=== PATIENT | male | born 1960 | race Caucasian/White ===

== ENCOUNTER 2019-03-16 12:44 | Inpatient (IN) | payer MEDICAID ==
[~2019-03-16] VITALS: Ht 172.5 cm; Wt 72.1 kg
[2019-03-16] MEDS ORDERED: SODIUM CHLORIDE 0.9% 1,000 ML IV ONE (13:22)
[2019-03-16] MEDS ORDERED: ONDANSETRON HCL 4MG/2ML INJ IV STA (13:22)
[2019-03-16 14:10] LABS: BASOPHILS % 0.4 % (0.0-2.0); EOSINOPHILS % 0.4 % (0.0-5.0); HEMATOCRIT. 33.1 % (42.0-52.0); HEMOGLOBIN. 11.3 g/dL (14.0-18.0); LYMPHOCYTES % 19.9 % (20.0-50.0); MEAN CORPUSCULAR HEMOGLOBIN 30.9 pg (28.0-32.0); MEAN CORPUSCULAR VOLUME 90.6 fL (80.0-94.0); MEAN PLATELET VOLUME 8.5 fl (7.4-10.4); MONOCYTES % 8.2 % (2.0-8.0); NEUTROPHILS % 71.1 % (40.0-76.0); PLATELET 116 x1000/uL (130-400); RED BLOOD CELL COUNT 3.66 mill/uL (4.7-6.1); RED CELL DISTRIBUTION WIDTH 14.5 % (11.6-14.6)
[2019-03-16 14:18] LABS: CHLORIDE 109 mEq/L (98-107)
[2019-03-16 14:21] LABS: ETHANOL BLOOD < 10 mg/dL
[2019-03-16] MEDS ORDERED: ASPIRIN 81MG TABLET PO ONE (17:30)
[2019-03-16 22:30] VITALS: BP 112/58
[2019-03-17] VITALS (10 sets, daily range): BP systolic 98–129; BP diastolic 54–90
[2019-03-17] MEDS ORDERED: IBUP-1653 PO (01:15)
[2019-03-17] MEDS ORDERED: ONDANSETRON HCL 4MG/2ML INJ IV PRN (01:45)
[2019-03-17] MEDS ORDERED: HYDROCODONE/ACETAMINOPHEN 5/325MG TABLET PO PRN (01:45)
[2019-03-17] MEDS ORDERED: SODIUM CHLORIDE 0.9% 1,000 ML IV SCH (02:00)
[2019-03-17] MEDS: SODIUM CHLORIDE 0.9% 1,000 ML IV SCH ×3 (03:42→22:52)
[2019-03-17] MEDS ORDERED: PANTOPRAZOLE 40MG DR TABLET PO SCH (07:20)
[2019-03-17 07:45] LABS: CHLORIDE 115 mEq/L (98-107)
[2019-03-17] MEDS ORDERED: IPRATROPIUM/ALBUTEROL 0.5-3(2.5)MG/3ML NEB HHN PRN (07:45)
[2019-03-17 08:51] LABS: BASOPHILS % 0.7 % (0.0-2.0); EOSINOPHILS % 6.1 % (0.0-5.0); MEAN CORPUSCULAR HEMOGLOBIN 31.4 pg (28.0-32.0); MEAN CORPUSCULAR VOLUME 91.8 fL (80.0-94.0); MEAN PLATELET VOLUME 8.4 fl (7.4-10.4); NEUTROPHILS % 50.2 % (40.0-76.0); PLATELET 113 x1000/uL (130-400); RED BLOOD CELL COUNT 2.24 mill/uL (4.7-6.1); RED CELL DISTRIBUTION WIDTH 14.3 % (11.6-14.6)
[2019-03-17 09:05] LABS: HEMATOCRIT. 20.5 % (42.0-52.0)
[2019-03-17] MEDS ORDERED: LEVOFLOXACIN 750MG PREMIX 150 ML IV SCH (10:00)
[2019-03-17] MEDS ORDERED: INFLUENZA VIRUS VACCINE(AFLURIA) 0.5ML SYR IM ONE (10:00)
[2019-03-17] MEDS ORDERED: IOHEXOL-350 100 ML BOTTLE ONE (10:50)
[2019-03-17 11:50] LABS: LDL CHOLESTEROL 49 mg/dL (5-100)
[2019-03-17 11:52] LABS: HDL CHOLESTEROL 30 mg/dL (40-59)
[2019-03-17] MEDS ORDERED: BENZONATATE 100MG CAPSULE PO PRN (14:30)
[2019-03-17] MEDS: ACETYLCYSTEINE 100MG/ML 10% VIAL 4ML INH SCH (15:00)
[2019-03-17] MEDS: AZITHROMYCIN 500 MG in DEXT 5% WATER 250 ML IV SCH (16:42)
[2019-03-17] MEDS: IPRATROPIUM/ALBUTEROL 0.5-3(2.5)MG/3ML NEB HHN SCH ×2 (16:45→20:11)
[2019-03-17 18:25] LABS: INR 1.4; PROTHROMBIN TIME 14.1 sec (9.6-11.0)
[2019-03-17] MEDS: CEFTRIAXONE 1 G PREMIX 50 ML IV SCH (18:30)
[2019-03-17 18:50] LABS: HEPATITIS B SURFACE ANTIGEN NEGATIVE
[2019-03-17 19:20] LABS: HEPATITIS A AB IGM NEGATIVE (NEGATIVE)
[2019-03-17] MEDS: PANTOPRAZOLE SODIUM 40 MG/VIAL IV SCH (21:06)
[2019-03-18] VITALS (10 sets, daily range): BP systolic 104–129; BP diastolic 57–65
[2019-03-18 00:32] LABS: HEMOGLOBIN 7.2 g/dL (14.0-18.0)
[2019-03-18] MEDS: ACETYLCYSTEINE 100MG/ML 10% VIAL 4ML INH SCH ×3 (00:34→16:28)
[2019-03-18] MEDS: IPRATROPIUM/ALBUTEROL 0.5-3(2.5)MG/3ML NEB HHN SCH ×6 (00:35→20:24)
[2019-03-18 02:03] LABS: HEMATOCRIT 21.3 % (42.0-52.0); HEMOGLOBIN 7.3 g/dL (14.0-18.0)
[2019-03-18] MEDS: PANTOPRAZOLE SODIUM 40 MG/VIAL IV SCH ×2 (08:24→20:57)
[2019-03-18 09:53] LABS: BASOPHILS % 1.1 % (0.0-2.0); EOSINOPHILS % 8.3 % (0.0-5.0); HEMATOCRIT. 22.8 % (42.0-52.0); LYMPHOCYTES % 32.2 % (20.0-50.0); MEAN CORPUSCULAR HEMOGLOBIN 31.3 pg (28.0-32.0); MEAN CORPUSCULAR VOLUME 89.4 fL (80.0-94.0); MONOCYTES % 10.9 % (2.0-8.0); NEUTROPHILS % 47.5 % (40.0-76.0); PLATELET 74 x1000/uL (130-400); RED BLOOD CELL COUNT 2.55 mill/uL (4.7-6.1); RED CELL DISTRIBUTION WIDTH 14.3 % (11.6-14.6)
[2019-03-18 09:57] LABS: CHLORIDE 114 mEq/L (98-107)
[2019-03-18] MEDS ORDERED: MIDAZOLAM HCL 5 MG/5 ML VIAL ONE (11:32)
[2019-03-18] MEDS ORDERED: SIMETHICONE 40 MG/0.6 ML 30ML ONE (11:33)
[2019-03-18] MEDS ORDERED: FENTANYL CITRATE/PF 50MCG/ML 2ML VIAL ONE (11:33)
[2019-03-18] MEDS ORDERED: MIDAZOLAM HCL 2 MG/2 ML VIAL IV PRN (11:41)
[2019-03-18] MEDS ORDERED: FENTANYL CITRATE/PF 50MCG/ML 2ML VIAL IV PRN (11:42)
[2019-03-18 15:29] LABS: HEMATOCRIT 23.1 % (42.0-52.0); HEMOGLOBIN 7.9 g/dL (14.0-18.0)
[2019-03-18] MEDS: SODIUM CHLORIDE 0.9% 1,000 ML IV SCH ×2 (16:20→21:42)
[2019-03-18] MEDS: AZITHROMYCIN 500 MG in DEXT 5% WATER 250 ML IV SCH (16:21)
[2019-03-18] MEDS: CEFTRIAXONE 1 G PREMIX 50 ML IV SCH (17:59)
[2019-03-19] VITALS: BP 112/60
[2019-03-19] MEDS: IPRATROPIUM/ALBUTEROL 0.5-3(2.5)MG/3ML NEB HHN SCH ×5 (01:16→16:00)
[2019-03-19] MEDS: ACETYLCYSTEINE 100MG/ML 10% VIAL 4ML INH SCH ×3 (01:17→16:20)
[2019-03-19 04:00] VITALS: BP 111/64
[2019-03-19] MEDS: SODIUM CHLORIDE 0.9% 1,000 ML IV SCH ×2 (04:21→13:37)
[2019-03-19 07:23] LABS: BASOPHILS % 0.7 % (0.0-2.0); EOSINOPHILS % 13.2 % (0.0-5.0); HEMATOCRIT. 22.3 % (42.0-52.0); HEMOGLOBIN. 7.7 g/dL (14.0-18.0); LYMPHOCYTES % 26.3 % (20.0-50.0); MEAN CORPUSCULAR HEMOGLOBIN 31.6 pg (28.0-32.0); MEAN CORPUSCULAR VOLUME 91.1 fL (80.0-94.0); MEAN PLATELET VOLUME 8.4 fl (7.4-10.4); MONOCYTES % 10.6 % (2.0-8.0); NEUTROPHILS % 49.2 % (40.0-76.0); PLATELET 72 x1000/uL (130-400); RED BLOOD CELL COUNT 2.45 mill/uL (4.7-6.1); RED CELL DISTRIBUTION WIDTH 14.4 % (11.6-14.6)
[2019-03-19 08:16] VITALS: BP 99/56
[2019-03-19] MEDS ORDERED: LEVO750T21 MT (09:05)
[2019-03-19] MEDS ORDERED: PROP10TA10 MT (09:05)
[2019-03-19] MEDS: PANTOPRAZOLE SODIUM 40 MG/VIAL IV SCH (09:15)
[2019-03-19 12:21] VITALS: BP 106/62
[2019-03-19] MEDS: AZITHROMYCIN 500 MG in DEXT 5% WATER 250 ML IV SCH (16:27)
[2019-03-19 16:31] VITALS: BP 112/66
[2019-03-19 17:19] VITALS: BP 112/66
[2019-03-20 08:07] LABS: HIV SCREEN 4G Non Reactive (Non Reactive)
== END 2019-03-19 18:42 | disposition home or self-care (01) | DRG 950 ==
LOC: ER 13:05 → ENRESERV 20:19 → 6WST 23:28
PROVIDERS: ADMIT Internal Medicine; ATTEND Internal Medicine
PROC: 30233N1 Transfusion of Nonautologous Red Blood Cells into Peripheral Vein, Percutaneous Approach (ICD-10-PCS; principal; 2019-03-17)
PROC: 06L34CZ Occlusion of Esophageal Vein with Extraluminal Device, Percutaneous Endoscopic Approach (ICD-10-PCS; 2019-03-18)
DX: K70.30 Alcoholic cirrhosis of liver without ascites (principal); J16.8 Pneumonia due to other specified infectious organisms; D69.59 Other secondary thrombocytopenia; E44.0 Moderate protein-calorie malnutrition; B49 Unspecified mycosis; E87.8 Other disorders of electrolyte and fluid balance, not elsewhere classified; I85.10 Secondary esophageal varices without bleeding; M94.0 Chondrocostal junction syndrome [Tietze]; J47.0 Bronchiectasis with acute lower respiratory infection; K76.6 Portal hypertension; K31.9 Disease of stomach and duodenum, unspecified; K44.9 Diaphragmatic hernia without obstruction or gangrene; F10.10 Alcohol abuse, uncomplicated; K57.90 Diverticulosis of intestine, part unspecified, without perforation or abscess without bleeding; K29.70 Gastritis, unspecified, without bleeding; K80.20 Calculus of gallbladder without cholecystitis without obstruction; D64.9 Anemia, unspecified; Z68.24 Body mass index [BMI] 24.0-24.9, adult
CPT/HCPCS: 36415; 71045; 71275; 80048; 80053; 80061; 80320; 83036; 83880; 84443; 84484; 85014; 85018; 85025; 85379; 86705; 86709; 86803; 86850; 86900; 86920; 87340; 87389; 90686; 93005; 93306; 94640; 97162; 99285; C9113; J0456; J0696; J1956; J2250; J2405; J3010; J7030; J7040; J7060; J7608; J7620; P9016; Q9967; G0480

== ENCOUNTER 2021-05-31 18:48 | Inpatient (IN) | payer MEDICAID, OTHER ==
[~2021-05-31] VITALS: Ht 172.7 cm; Wt 68.9 kg
[~2021-05-31 18:48] MED LIST: LEVO750T21 MT; PROP10TA10 MT
[2021-05-31 19:15] LABS: HEMATOCRIT. 25.9 % (42.0-52.0); MEAN CORPUSCULAR HEMOGLOBIN 19.9 pg (28.0-32.0); MEAN CORPUSCULAR VOLUME 64.7 fL (80.0-94.0); MEAN PLATELET VOLUME 8.6 fl (7.4-10.4); PLATELET 118 x1000/uL (130-400); RED CELL DISTRIBUTION WIDTH 19.1 % (11.6-14.6)
[2021-05-31 19:25] LABS: CHLORIDE 95 mEq/L (98-107)
[2021-05-31 19:30] LABS: ETHANOL BLOOD < 10 mg/dL
[2021-05-31] MEDS ORDERED: PIPERACILLIN/TAZ 3.375G PREMIX 50 ML IV ONE (22:15)
[2021-05-31] MEDS ORDERED: ASPIRIN 81MG TABLET PO ONE (22:15)
[2021-05-31] MEDS ORDERED: MORPHINE SULFATE 4 MG/ML CPJ (NOT FOR IM USE) IV ONE (22:15)
[2021-05-31] MEDS: VANCOMYCIN 1G PREMIX 200 ML IV SCH ×2 (22:45→22:50)
[2021-05-31] MEDS ORDERED: SODIUM CHLORIDE 0.9% 250 ML IV ONE (23:15)
[2021-05-31 23:16] LABS: PLATELET ESTIMATE DECREASED
[2021-06-01 02:31] LABS: METHADONE URINE SCREEN NEGATIVE (NEGATIVE); OPIATES URINE SCREEN PRESUMTIVE POSITIVE (NEGATIVE)
[2021-06-01 02:32] LABS: *AMPHETAMINES SCREEN URINE NEGATIVE (NEGATIVE); *BARBITURATES SCREEN URINE NEGATIVE (NEGATIVE); *BENZODIAZEPINES SCREEN URINE NEGATIVE (NEGATIVE); *COCAINE SCREEN URINE NEGATIVE (NEGATIVE); CANNABINOID URINE SCREEN NEGATIVE (NEGATIVE); PHENCYCLIDINE URINE SCREEN NEGATIVE (NEGATIVE)
[2021-06-01] MEDS ORDERED: IPRATROPIUM/ALBUTEROL 0.5-3(2.5)MG/3ML NEB HHN PRN (09:45)
[2021-06-01] MEDS ORDERED: GUAIFENESIN-DM 200MG-20MG/10ML UDC PO PRN (09:45)
[2021-06-01 10:00] VITALS: BP_SYST 84; BP_SYST 88; BP_DIAS 33
[2021-06-01 12:00] VITALS: BP 99/57
[2021-06-01] MEDS: CEFEPIME 1,000 MG in DEXTROSE 5% WATER 50 ML IV SCH ×2 (12:51→22:57)
[2021-06-01] MEDS ORDERED: ACETYLCYSTEINE 100MG/ML 10% VIAL 4ML INH SCH (14:00)
[2021-06-01 16:00] VITALS: BP 95/64
[2021-06-01 20:00] VITALS: BP 112/56
[2021-06-01] MEDS: ACETAMINOPHEN 325MG TABLET PO PRN (22:05)
[2021-06-02] VITALS (14 sets, daily range): BP systolic 101–119; BP diastolic 49–80
[2021-06-02 06:12] LABS: BASOPHILS % 0.3 % (0.0-2.0); EOSINOPHILS % 4.3 % (0.0-5.0); HEMATOCRIT. 21.7 % (42.0-52.0); LYMPHOCYTES % 7.5 % (20.0-50.0); MEAN CORPUSCULAR HEMOGLOBIN 20.4 pg (28.0-32.0); MEAN CORPUSCULAR VOLUME 63.8 fL (80.0-94.0); MONOCYTES % 11.7 % (2.0-8.0); NEUTROPHILS % 76.2 % (40.0-76.0); PLATELET 81 x1000/uL (130-400); RED BLOOD CELL COUNT 3.41 mill/uL (4.7-6.1); RED CELL DISTRIBUTION WIDTH 19.3 % (11.6-14.6)
[2021-06-02] MEDS: CEFEPIME 1,000 MG in DEXTROSE 5% WATER 50 ML IV SCH ×2 (10:02→20:17)
[2021-06-02] MEDS ORDERED: DIGOXIN 500MCG/2ML AMP IV NR ×2 (10:15→10:45)
[2021-06-02] MEDS: ACETAMINOPHEN 325MG TABLET PO PRN ×2 (13:00→20:14)
[2021-06-02] MEDS ORDERED: DILTIAZEM HCL 125 MG in DEXT 5% WATER 100 ML IV SCH ×2 (13:30→15:50)
[2021-06-02] MEDS: DIGOXIN 500MCG/2ML AMP IV SCH (18:00)
[2021-06-02] MEDS: ONDANSETRON HCL 4MG/2ML INJ IV PRN (20:14)
[2021-06-02 21:01] LABS: TOTAL IRON BINDING CAPACITY 380 ug/dL (250-450)
[2021-06-02 21:25] LABS: FERRITIN 54 ng/mL (22-322)
[2021-06-02 21:36] LABS: VITAMIN B12 SERUM >2000 pg/mL pg/mL (211-911)
[2021-06-02] MEDS: OCTREOTIDE 1,000 MCG in SODIUM CHLORIDE 0.9% 98 ML IV SCH (21:53)
[2021-06-03] VITALS (12 sets, daily range): BP systolic 100–128; BP diastolic 51–69
[2021-06-03 01:05] LABS: HEMATOCRIT 26.8 % (42.0-52.0); HEMOGLOBIN 8.4 g/dL (14.0-18.0)
[2021-06-03] MEDS: HYDROCODONE/ACETAMINOPHEN 5/325MG TABLET PO PRN ×4 (01:14→23:58)
[2021-06-03] MEDS ORDERED: NALOXONE HCL 0.4 MG/ML 1ML VIAL IV PRN (01:15)
[2021-06-03 05:45] LABS: HEMATOCRIT. 27.1 % (42.0-52.0); HEMOGLOBIN. 8.4 g/dL (14.0-18.0); MEAN CORPUSCULAR HEMOGLOBIN 20.2 pg (28.0-32.0); MEAN CORPUSCULAR VOLUME 65.3 fL (80.0-94.0); MEAN PLATELET VOLUME 8.6 fl (7.4-10.4); PLATELET 86 x1000/uL (130-400); RED BLOOD CELL COUNT 4.15 mill/uL (4.7-6.1); RED CELL DISTRIBUTION WIDTH 20.9 % (11.6-14.6)
[2021-06-03 05:59] LABS: CHLORIDE 102 mEq/L (98-107)
[2021-06-03 07:48] LABS: INR 1.3; PROTHROMBIN TIME 14.1 sec (9.6-11.0)
[2021-06-03] MEDS: CEFEPIME 1,000 MG in DEXTROSE 5% WATER 50 ML IV SCH ×2 (10:30→20:18)
[2021-06-03] MEDS: DILTIAZEM HCL 30MG TABLET PO SCH ×2 (12:52→18:00)
[2021-06-03 12:59] LABS: HEMATOCRIT 25.8 % (42.0-52.0); HEMOGLOBIN 8.2 g/dL (14.0-18.0)
[2021-06-03] MEDS: MAGNESIUM OXIDE 400MG TABLET PO SCH (13:51)
[2021-06-03 17:47] LABS: PLATELET ESTIMATE DECREASED
[2021-06-03] MEDS: DIGOXIN 500MCG/2ML AMP IV SCH (18:00)
[2021-06-03] MEDS: FERROUS SULFATE 325MG TABLET PO SCH (18:16)
[2021-06-03] MEDS: ONDANSETRON HCL 4MG/2ML INJ IV PRN (21:17)
[2021-06-03] MEDS: OCTREOTIDE 1,000 MCG in SODIUM CHLORIDE 0.9% 98 ML IV SCH (21:22)
[2021-06-03 21:28] LABS: HEMATOCRIT 26.9 % (42.0-52.0); HEMOGLOBIN 8.3 g/dL (14.0-18.0)
[2021-06-04] VITALS (8 sets, daily range): BP systolic 104–129; BP diastolic 65–77
[2021-06-04] MEDS: DILTIAZEM HCL 30MG TABLET PO SCH ×3 (00:02→13:24)
[2021-06-04 01:44] LABS: HEMATOCRIT 26.6 % (42.0-52.0); HEMOGLOBIN 8.3 g/dL (14.0-18.0)
[2021-06-04 07:15] LABS: HEMATOCRIT 25.6 % (42.0-52.0)
[2021-06-04] MEDS: CEFEPIME 1,000 MG in DEXTROSE 5% WATER 50 ML IV SCH (08:58)
[2021-06-04] MEDS: FERROUS SULFATE 325MG TABLET PO SCH (08:58)
[2021-06-04] MEDS: MAGNESIUM OXIDE 400MG TABLET PO SCH (08:58)
[2021-06-04] MEDS ORDERED: LEVO750T46 MT (11:23)
[2021-06-04 13:17] LABS: HEMATOCRIT 25.5 % (42.0-52.0); HEMOGLOBIN 8.2 g/dL (14.0-18.0)
== END 2021-06-04 20:42 | disposition home or self-care (01) | DRG 720 ==
LOC: ER 18:48 → 5EST 22:16 → ENRESERV 06-01 08:33
PROVIDERS: ADMIT Internal Medicine; ATTEND Internal Medicine
PROC: 30233N1 Transfusion of Nonautologous Red Blood Cells into Peripheral Vein, Percutaneous Approach (ICD-10-PCS; principal; 2021-06-02)
DX: A41.9 Sepsis, unspecified organism (principal); N17.0 Acute kidney failure with tubular necrosis; K76.7 Hepatorenal syndrome; E43 Unspecified severe protein-calorie malnutrition; D69.6 Thrombocytopenia, unspecified; I27.20 Pulmonary hypertension, unspecified; E87.1 Hypo-osmolality and hyponatremia; E88.09 Other disorders of plasma-protein metabolism, not elsewhere classified; I42.9 Cardiomyopathy, unspecified; E87.8 Other disorders of electrolyte and fluid balance, not elsewhere classified; F10.21 Alcohol dependence, in remission; I48.91 Unspecified atrial fibrillation; J18.9 Pneumonia, unspecified organism; K76.6 Portal hypertension; D50.9 Iron deficiency anemia, unspecified; R65.20 Severe sepsis without septic shock; K70.31 Alcoholic cirrhosis of liver with ascites; E80.6 Other disorders of bilirubin metabolism; R07.89 Other chest pain; K92.2 Gastrointestinal hemorrhage, unspecified; E83.42 Hypomagnesemia; I10 Essential (primary) hypertension; Z20.822 Contact with and (suspected) exposure to COVID-19; Z68.23 Body mass index [BMI] 23.0-23.9, adult; Z79.2 Long term (current) use of antibiotics; Z79.899 Other long term (current) drug therapy; Z98.84 Bariatric surgery status
CPT/HCPCS: 36415; 71045; 71250; 76700; 80048; 80053; 80305; 80320; 82607; 82728; 82746; 83540; 83550; 83605; 83735; 83880; 84145; 84443; 84484; 85014; 85018; 85025; 85044; 86850; 86900; 86920; 87426; 93005; 93306; 99291; J0692; J1160; J2270; J2354; J2405; J2543; J3370; J3490; J7040; J7050; J7060; P9016; G0480